=== PATIENT | male | born 1960 | race Caucasian/White ===

== ENCOUNTER 2024-01-02 15:09 | Inpatient (IN) | payer OTHER ==
[~2024-01-02] VITALS: Ht 180.3 cm; Wt 68.0 kg
[2024-01-02 15:59] LABS: BASOPHILS % 0.7 % (0.0-2.0); EOSINOPHILS % 0.2 % (0.0-5.0); HEMATOCRIT. 47.4 % (42.0-52.0); HEMOGLOBIN. 15.2 g/dL (14.0-18.0); LYMPHOCYTES % 22.2 % (20.0-50.0); MEAN CORPUSCULAR HEMOGLOBIN 29.1 pg (28.0-32.0); NEUTROPHILS % 68.9 % (40.0-76.0); PLATELET 244 x1000/uL (130-400); RED BLOOD CELL COUNT 5.21 mill/uL (4.7-6.1); RED CELL DISTRIBUTION WIDTH 15.5 % (11.6-14.6)
[2024-01-02 16:04] LABS: CHLORIDE 104 mEq/L (98-107); POTASSIUM 4.5 mEq/L (3.5-5.1); SODIUM 139 mEq/L (136-145)
[2024-01-02 16:05] LABS: CALCIUM 9.2 mg/dL (8.7-10.4); CARBON DIOXIDE 28 mEq/L (21-32)
[2024-01-02 16:10] LABS: CREATININE 1.3 mg/dL (0.6-1.3); GLUCOSE 100 mg/dL (70-105); UREA NITROGEN BLOOD 31 mg/dL (9-23)
[2024-01-02 16:12] LABS: TROPONIN I HIGH SENSITIVITY 24 ng/L (3.0-53)
[2024-01-02] MEDS: FUROSEMIDE 40MG/4ML VIAL IV ONE (16:13)
[2024-01-02] MEDS: ASPIRIN 81MG TABLET PO ONE (16:13)
[2024-01-02] MEDS: MORPHINE SULFATE 4 MG/ML INJ (FOR IV/IM USE) IV ONE ×2 (16:49→20:23)
[2024-01-02 21:30] VITALS: BP 117/93; PULSE 110; PULSE 111; RESP 14; RESP 25; TEMP 97.9
[2024-01-03] VITALS (51 sets, daily range): BP systolic 96–132; BP diastolic 71–106; PULSE 91–114; RESP 9–28; TEMP 96.8–98.2
[2024-01-03] MEDS ORDERED: ONDANSETRON HCL 4MG/2ML INJ IV PRN (02:00)
[2024-01-03] MEDS ORDERED: NALOXONE HCL 0.4MG/ML VIAL IV PRN (02:00)
[2024-01-03] MEDS ORDERED: CLONIDINE 0.1MG TABLET PO PRN (02:00)
[2024-01-03] MEDS: HYDROCODONE/ACETAMINOPHEN 5/325MG TABLET PO PRN (02:28)
[2024-01-03 04:16] LABS: CLARITY URINE CLEAR (CLEAR); COLOR URINE YELLOW (YELLOW); GLUCOSE URINE NEGATIVE (NEGATIVE); KETONES URINE NEGATIVE (NEGATIVE); LEUKOCYTE ESTERASE URINE NEGATIVE (NEGATIVE); NITRITE URINE NEGATIVE (NEGATIVE); OCCULT BLOOD URINE NEGATIVE (NEGATIVE); PROTEIN URINE 1+ (NEGATIVE); SPECIFIC GRAVITY URINE 1.012 (1.005-1.030)
[2024-01-03 04:21] LABS: *AMPHETAMINES SCREEN URINE PRESUMPTIVE POSITIVE (NEGATIVE); *BARBITURATES SCREEN URINE NEGATIVE (NEGATIVE); *BENZODIAZEPINES SCREEN URINE NEGATIVE (NEGATIVE); CANNABINOID URINE SCREEN PRESUMPTIVE POSITIVE (NEGATIVE); ECSTASY MDMA SCREEN URINE NEGATIVE (NEGATIVE); METHADONE URINE SCREEN NEGATIVE (NEGATIVE); OPIATES URINE SCREEN PRESUMPTIVE POSITIVE (NEGATIVE); PHENCYCLIDINE URINE SCREEN NEGATIVE (NEGATIVE)
[2024-01-03 05:28] LABS: *COCAINE SCREEN URINE NEGATIVE (NEGATIVE)
[2024-01-03 06:14] LABS: BACTERIA URINE NONE SEEN; RBC URINE NONE SEEN /hpf (0-2); SQUAMOUS EPITHELIAL CELL URINE NONE SEEN /lpf (RARE/1+); WBC URINE 0-2 /hpf (0-2)
[2024-01-03 06:36] LABS: CALCIUM 9.4 mg/dL (8.7-10.4); CHLORIDE 103 mEq/L (98-107); POTASSIUM 4.4 mEq/L (3.5-5.1); SODIUM 141 mEq/L (136-145)
[2024-01-03 06:37] LABS: CARBON DIOXIDE 26 mEq/L (21-32)
[2024-01-03 06:41] LABS: TROPONIN I HIGH SENSITIVITY 37 ng/L (3.0-53)
[2024-01-03 06:42] LABS: CREATININE 1.5 mg/dL (0.6-1.3); GLUCOSE 97 mg/dL (70-105); TRIGLYCERIDE 59 mg/dL (0-150); UREA NITROGEN BLOOD 24 mg/dL (9-23)
[2024-01-03 06:43] LABS: LDL CHOLESTEROL 53 mg/dL (5-100)
[2024-01-03 06:44] LABS: CHOLESTEROL 93 mg/dL (<200); HDL CHOLESTEROL 27 mg/dL (>55)
[2024-01-03 06:45] LABS: THYROID STIMULATING HORMONE 5.64 uIU/mL (0.55-4.78)
[2024-01-03 06:53] LABS: BASOPHILS % 0.6 % (0.0-2.0); DIFFERENTIAL COMMENT 0; EOSINOPHILS % 0.3 % (0.0-5.0); HEMOGLOBIN. 16.2 g/dL (14.0-18.0); LYMPHOCYTES % 26.3 % (20.0-50.0); MEAN CORPUSCULAR HGB CONC 31.1 g/dL (31.0-37.0); MEAN CORPUSCULAR VOLUME 93.3 fL (80.0-94.0); MEAN PLATELET VOLUME 9.6 fl (7.4-10.4); MONOCYTES % 9.1 % (2.0-8.0); NEUTROPHILS % 63.7 % (40.0-76.0); PLATELET 251 x1000/uL (130-400); RED BLOOD CELL COUNT 5.57 mill/uL (4.7-6.1); WHITE BLOOD COUNT 7.9 x1000/uL (4.5-11.0)
[2024-01-03 07:08] LABS: HEPATITIS B SURFACE ANTIGEN NEGATIVE (Negative)
[2024-01-03 07:29] LABS: HEPATITIS C AB REACTIVE (Pos) (Negative)
[2024-01-03] MEDS ORDERED: ETOMIDATE 2MG/ML 10ML VIAL IV ONE (09:00)
[2024-01-03] MEDS: FUROSEMIDE 40MG/4ML VIAL IVP SCH (09:31)
[2024-01-03] MEDS: HEPARIN 5000 UNITS/ML VIAL SUBCUT SCH (10:35)
[2024-01-03] MEDS: NICOTINE 14MG PATCH TD SCH (10:35)
[2024-01-03] MEDS: LORAZEPAM 2MG/ML INJ IV PRN (10:35)
[2024-01-03 11:55] LABS: CREATINE KINASE 129 IU/L (46-171)
[2024-01-03] MEDS: IPRATROPIUM/ALBUTEROL 0.5-3(2.5)MG/3ML NEB HHN SCH (12:06)
[2024-01-03] MEDS ORDERED: IOHEXOL-350 100 ML BOTTLE ONE (12:55)
[2024-01-03] MEDS ORDERED: HYDRALAZINE 20MG/ML VIAL IV PRN (13:00)
[2024-01-03] MEDS ORDERED: NOREPINEPHRINE 8MG/250ML PMX 250 ML IV PRN (13:00)
[2024-01-03] MEDS: PROPOFOL 10MG/ML 100ML 100 ML IV PRN (14:17)
[2024-01-03] MEDS: METHYLPREDNISOLONE SOD SUCC 40MG/ML (ACT-O-VIAL) IV SCH (14:18)
[2024-01-03 14:42] LABS: BG BASE EXCESS -2.9 mmol/L (-2.0-2.0); BG CARBOXYHEMOGLOBIN 0.7 % (0.5-1.5); BG DEOXYHEMOGLOBIN 1.9 % (0.0-5.0); BG FRACTION INSPIRED OXYGEN 100; BG OXYGEN SATURATION 98.1 % (92.0-98.5); BG OXYHEMOGLOBIN 97.4 % (94.0-97.0); BG PCO2 54.7 mmHg (35.0-45.0); BG PH 7.277 (7.350-7.450); BG PO2 113.3 mmHg (75.0-100.0); BG SAMPLE SITE RIGHT RADIAL; BG TOTAL HEMOGLOBIN 17.1 g/dL (12.0-18.0); BG VENT MODE VENT - AC
[2024-01-03] MEDS: PIPERACILLIN/TAZO 3.375G/50ML 50 ML IV SCH (14:59)
[2024-01-03] MEDS ORDERED: PNEUMOCOCCAL 23-VAL P-SAC VAC 0.5 ML IM ONE (15:00)
[2024-01-03] MEDS: ACETYLCYSTEINE 200MG/ML 20% VIAL 4ML INH SCH (22:00)
[2024-01-04] VITALS (108 sets, daily range): BP systolic 89–122; BP diastolic 63–105; PULSE 89–140; RESP 18–25; TEMP 96.7–98.1
[2024-01-04 05:29] LABS: HEMATOCRIT. 51.2 % (42.0-52.0); HEMOGLOBIN. 16.1 g/dL (14.0-18.0); MEAN CORPUSCULAR HEMOGLOBIN 29.4 pg (28.0-32.0); MEAN CORPUSCULAR HGB CONC 31.4 g/dL (31.0-37.0); MEAN CORPUSCULAR VOLUME 93.4 fL (80.0-94.0); MEAN PLATELET VOLUME 9.4 fl (7.4-10.4); PLATELET 219 x1000/uL (130-400); RED BLOOD CELL COUNT 5.49 mill/uL (4.7-6.1); RED CELL DISTRIBUTION WIDTH 15.9 % (11.6-14.6); WHITE BLOOD COUNT 14.9 x1000/uL (4.5-11.0)
[2024-01-04 06:17] LABS: DIFFERENTIAL COMMENT 1
[2024-01-04 09:16] LABS: BG BASE EXCESS 3.1 mmol/L (-2.0-2.0); BG CARBOXYHEMOGLOBIN 0.9 % (0.5-1.5); BG DEOXYHEMOGLOBIN 2.8 % (0.0-5.0); BG FRACTION INSPIRED OXYGEN 100; BG HCO3 ACT 27.2 mmol/L (22.0-26.0); BG METHEMOGLOBIN 0.3 % (0.0-1.5); BG OXYGEN SATURATION 97.2 % (92.0-98.5); BG PCO2 39.9 mmHg (35.0-45.0); BG PH 7.452 (7.350-7.450); BG PO2 87.4 mmHg (75.0-100.0); BG SAMPLE SITE RIGHT BRACHIAL; BG TOTAL HEMOGLOBIN 16.8 g/dL (12.0-18.0); BG VENT MODE VENT - AC
[2024-01-04 09:29] LABS: CALCIUM 9.2 mg/dL (8.7-10.4); CARBON DIOXIDE 27 mEq/L (21-32); CHLORIDE 102 mEq/L (98-107); POTASSIUM 4.1 mEq/L (3.5-5.1); SODIUM 141 mEq/L (136-145)
[2024-01-04 09:34] LABS: CREATININE 1.5 mg/dL (0.6-1.3); GLUCOSE 92 mg/dL (70-105)
[2024-01-04 09:35] LABS: TRIGLYCERIDE 87 mg/dL (0-150); UREA NITROGEN BLOOD 21 mg/dL (9-23)
[2024-01-04] MEDS: CHLORHEXIDINE GLUCONATE 4% EXTERNAL USE TOP SCH (13:00)
[2024-01-04 16:10] LABS: PLATELET ESTIMATE NORMAL
[2024-01-04 17:51] LABS: LACTIC ACID 6.9 mmol/L (0.4-2.0)
[2024-01-04] MEDS ORDERED: PROPOFOL 10MG/ML 100ML 100 ML IV PRN (22:00)
[2024-01-04] MEDS: PROPOFOL 10MG/ML 100ML 100 ML IV PRN (22:23)
[2024-01-05] VITALS (67 sets, daily range): BP systolic 101–122; BP diastolic 83–100; PULSE 101–116; RESP 18–27; TEMP 97–98.7
[2024-01-05 06:17] LABS: HEMATOCRIT. 49.9 % (42.0-52.0); HEMOGLOBIN. 15.7 g/dL (14.0-18.0); MEAN CORPUSCULAR HGB CONC 31.4 g/dL (31.0-37.0); MEAN CORPUSCULAR VOLUME 92.3 fL (80.0-94.0); MEAN PLATELET VOLUME 9.9 fl (7.4-10.4); PLATELET 224 x1000/uL (130-400); RED BLOOD CELL COUNT 5.41 mill/uL (4.7-6.1); RED CELL DISTRIBUTION WIDTH 15.3 % (11.6-14.6); WHITE BLOOD COUNT 17.7 x1000/uL (4.5-11.0)
[2024-01-05 06:26] LABS: POTASSIUM 4.2 mEq/L (3.5-5.1)
[2024-01-05 06:27] LABS: CALCIUM 9.3 mg/dL (8.7-10.4)
[2024-01-05 06:31] LABS: CREATININE 1.4 mg/dL (0.6-1.3)
[2024-01-05 08:25] LABS: DIFFERENTIAL COMMENT 1
[2024-01-05 11:18] LABS: PLATELET ESTIMATE NORMAL
[2024-01-05] MEDS: METOLAZONE 2.5MG TABLET PO NR (13:08)
[2024-01-05] MEDS: ACETAMINOPHEN 325MG TABLET PO PRN (13:08)
[2024-01-05] MEDS: BACITRACIN 14GM TUBE TOP SCH (14:00)
[2024-01-06] VITALS (85 sets, daily range): BP systolic 99–125; BP diastolic 75–103; PULSE 98–121; RESP 18–26; TEMP 97.9–98.3
[2024-01-06] MEDS: PROPOFOL 10MG/ML 100ML 100 ML IV PRN (03:15)
[2024-01-06 11:34] LABS: HEMATOCRIT. 46.5 % (42.0-52.0); HEMOGLOBIN. 14.8 g/dL (14.0-18.0); MEAN CORPUSCULAR HGB CONC 31.9 g/dL (31.0-37.0); MEAN CORPUSCULAR VOLUME 90.9 fL (80.0-94.0); MEAN PLATELET VOLUME 8.9 fl (7.4-10.4); PLATELET 197 x1000/uL (130-400); RED BLOOD CELL COUNT 5.11 mill/uL (4.7-6.1); RED CELL DISTRIBUTION WIDTH 15.5 % (11.6-14.6); WHITE BLOOD COUNT 15.5 x1000/uL (4.5-11.0)
[2024-01-06 11:36] LABS: DIFFERENTIAL COMMENT 1
[2024-01-06 11:47] LABS: POTASSIUM 3.4 mEq/L (3.5-5.1)
[2024-01-06 11:48] LABS: CALCIUM 9.2 mg/dL (8.7-10.4)
[2024-01-06 11:53] LABS: CREATININE 1.3 mg/dL (0.6-1.3)
[2024-01-06 11:54] LABS: LACTIC ACID 2.7 mmol/L (0.4-2.0)
[2024-01-06 12:32] LABS: ANISOCYTOSIS 1+; PLATELET ESTIMATE NORMAL
[2024-01-06] MEDS: POTASSIUM CHLORIDE 20MEQ TABLET SR PO NR (14:29)
[2024-01-06] MEDS: SPIRONOLACTONE 25MG TABLET PO SCH (14:30)
[2024-01-06] MEDS ORDERED: METHYLPREDNISOLONE SOD SUCC 40MG/ML (ACT-O-VIAL) IV SCH (18:00)
[2024-01-06] MEDS: METHYLPREDNISOLONE SOD SUCC 40MG/ML (ACT-O-VIAL) IV SCH (21:00)
[2024-01-07] VITALS (63 sets, daily range): BP systolic 99–129; BP diastolic 79–103; PULSE 96–112; RESP 16–24; TEMP 97.7–98.4
[2024-01-07 05:40] LABS: HEMATOCRIT. 43.1 % (42.0-52.0); HEMOGLOBIN. 13.8 g/dL (14.0-18.0); MEAN CORPUSCULAR HEMOGLOBIN 28.9 pg (28.0-32.0); MEAN CORPUSCULAR VOLUME 90.3 fL (80.0-94.0); PLATELET 171 x1000/uL (130-400); RED BLOOD CELL COUNT 4.77 mill/uL (4.7-6.1); RED CELL DISTRIBUTION WIDTH 15.7 % (11.6-14.6); WHITE BLOOD COUNT 12.2 x1000/uL (4.5-11.0)
[2024-01-07 05:41] LABS: DIFFERENTIAL COMMENT 1
[2024-01-07] MEDS: PROPOFOL 10MG/ML 100ML 100 ML IV PRN ×2 (05:42→21:03)
[2024-01-07 05:45] LABS: CHLORIDE 99 mEq/L (98-107); POTASSIUM 3.7 mEq/L (3.5-5.1); SODIUM 141 mEq/L (136-145)
[2024-01-07 05:46] LABS: CARBON DIOXIDE 34 mEq/L (21-32)
[2024-01-07 05:51] LABS: CREATININE 1.2 mg/dL (0.6-1.3); GLUCOSE 135 mg/dL (70-105); TRIGLYCERIDE 78 mg/dL (0-150); UREA NITROGEN BLOOD 34 mg/dL (9-23)
[2024-01-07 10:25] LABS: PLATELET ESTIMATE NORMAL
[2024-01-07] MEDS: POLYETHYLENE GLYCOL 3350 (17GM) 1 DOSE PACK PO PRN (12:54)
[2024-01-07] MEDS: PANTOPRAZOLE SODIUM 40 MG/VIAL IV SCH (12:54)
[2024-01-08] VITALS (47 sets, daily range): BP systolic 92–117; BP diastolic 72–97; PULSE 82–110; RESP 16–24; TEMP 97.4–98.1
[2024-01-08 05:24] LABS: HEMATOCRIT. 45.1 % (42.0-52.0); HEMOGLOBIN. 14.4 g/dL (14.0-18.0); MEAN CORPUSCULAR HEMOGLOBIN 28.8 pg (28.0-32.0); MEAN CORPUSCULAR HGB CONC 31.9 g/dL (31.0-37.0); MEAN CORPUSCULAR VOLUME 90.3 fL (80.0-94.0); MEAN PLATELET VOLUME 9.2 fl (7.4-10.4); PLATELET 162 x1000/uL (130-400); RED CELL DISTRIBUTION WIDTH 15.3 % (11.6-14.6); WHITE BLOOD COUNT 9.6 x1000/uL (4.5-11.0)
[2024-01-08 05:25] LABS: DIFFERENTIAL COMMENT 1
[2024-01-08 05:27] LABS: CARBON DIOXIDE 32 mEq/L (21-32); CHLORIDE 99 mEq/L (98-107); POTASSIUM 3.9 mEq/L (3.5-5.1); SODIUM 140 mEq/L (136-145)
[2024-01-08 05:28] LABS: CALCIUM 8.8 mg/dL (8.7-10.4)
[2024-01-08 05:33] LABS: CREATININE 1.2 mg/dL (0.6-1.3); GLUCOSE 162 mg/dL (70-105); TRIGLYCERIDE 107 mg/dL (0-150); UREA NITROGEN BLOOD 34 mg/dL (9-23)
[2024-01-08 06:13] LABS: ATYPICAL LYMPHOCYTES 2; PLATELET ESTIMATE NORMAL
[2024-01-08 06:14] LABS: OVALOCYTES 2+; TARGET CELLS 1+; TEAR DROP CELLS 1+
[2024-01-08] MEDS: METHYLPREDNISOLONE SOD SUCC 40MG/ML (ACT-O-VIAL) IV SCH (08:41)
[2024-01-08 11:19] LABS: PARTIAL THROMBOPLASTIN TIME 27.1 sec (23.4-31.0); PROTHROMBIN TIME 11.5 sec (9.6-11.0)
[2024-01-08] MEDS: PROPOFOL 10MG/ML 100ML 100 ML IV PRN (23:08)
[2024-01-09] VITALS (65 sets, daily range): BP systolic 87–113; BP diastolic 66–101; PULSE 78–133; RESP 14–50; TEMP 98.1–98.6; O2SAT 95
[2024-01-09 05:21] LABS: BASOPHILS % 0.2 % (0.0-2.0); EOSINOPHILS % 0.1 % (0.0-5.0); HEMOGLOBIN. 14.4 g/dL (14.0-18.0); MEAN CORPUSCULAR HEMOGLOBIN 28.7 pg (28.0-32.0); MEAN CORPUSCULAR VOLUME 89.4 fL (80.0-94.0); MEAN PLATELET VOLUME 9.4 fl (7.4-10.4); MONOCYTES % 8.1 % (2.0-8.0); NEUTROPHILS % 76.6 % (40.0-76.0); PLATELET 153 x1000/uL (130-400); RED BLOOD CELL COUNT 5.03 mill/uL (4.7-6.1); RED CELL DISTRIBUTION WIDTH 15.3 % (11.6-14.6)
[2024-01-09 05:29] LABS: CHLORIDE 99 mEq/L (98-107); POTASSIUM 3.9 mEq/L (3.5-5.1); SODIUM 139 mEq/L (136-145)
[2024-01-09 05:30] LABS: CALCIUM 8.7 mg/dL (8.7-10.4); CARBON DIOXIDE 34 mEq/L (21-32)
[2024-01-09 05:35] LABS: CREATININE 1.1 mg/dL (0.6-1.3); GLUCOSE 92 mg/dL (70-105); TRIGLYCERIDE 102 mg/dL (0-150)
[2024-01-09 05:36] LABS: UREA NITROGEN BLOOD 33 mg/dL (9-23)
[2024-01-09 08:30] LABS: BG BASE EXCESS 11.1 mmol/L (-2.0-2.0); BG CARBOXYHEMOGLOBIN 0.9 % (0.5-1.5); BG DEOXYHEMOGLOBIN 1.3 % (0.0-5.0); BG FRACTION INSPIRED OXYGEN 60; BG HCO3 ACT 35.4 mmol/L (22.0-26.0); BG METHEMOGLOBIN 0.1 % (0.0-1.5); BG OXYGEN SATURATION 98.7 % (92.0-98.5); BG OXYHEMOGLOBIN 97.7 % (94.0-97.0); BG PH 7.523 (7.350-7.450); BG PO2 109.3 mmHg (75.0-100.0); BG SAMPLE SITE LEFT RADIAL; BG TOTAL HEMOGLOBIN 15.9 g/dL (12.0-18.0); BG TOTAL RESPIRATORY RATE 20 b/min; BG VENT MODE VENT - AC
[2024-01-09] MEDS ORDERED: LIDOCAINE HCL 1% 10 MG/ML 10ML VIAL ONE (08:31)
[2024-01-09] MEDS ORDERED: SODIUM BICARBONATE 4% (2.4MEQ) 5ML VIAL IV ONE (08:31)
[2024-01-09] MEDS: ALBUMIN HUMAN 12.5G/250ML (5%) IV NR (10:51)
[2024-01-09 11:36] LABS: PROTEIN BODY FLUID 2.4 gm/dL
[2024-01-09 11:36] LABS: PROTEIN BODY FLUID 3.2 gm/dL
[2024-01-09 11:43] LABS: BODY FLUID MONOCYTES 2 %; BODY FLUID RBC 7 /cu mm (0-2000); BODY FLUID WBC 25 /cu mm (0-200)
[2024-01-09 11:44] LABS: BODY FLUID MONOCYTES 2 %; BODY FLUID RBC 1380 /cu mm (0-2000); BODY FLUID WBC 135 /cu mm (0-200)
[2024-01-09] MEDS: SPIRONOLACTONE 25 MG/5 ML ORAL.SUSP NG SCH (12:30)
[2024-01-09 13:08] LABS: BG BASE EXCESS 8.6 mmol/L (-2.0-2.0); BG CARBOXYHEMOGLOBIN 0.7 % (0.5-1.5); BG DEOXYHEMOGLOBIN 1.7 % (0.0-5.0); BG HCO3 ACT 33.7 mmol/L (22.0-26.0); BG METHEMOGLOBIN 0.1 % (0.0-1.5); BG OXYGEN SATURATION 98.3 % (92.0-98.5); BG OXYHEMOGLOBIN 97.5 % (94.0-97.0); BG PCO2 47.3 mmHg (35.0-45.0); BG PO2 100.8 mmHg (75.0-100.0); BG SAMPLE SITE RIGHT BRACHIAL; BG TOTAL HEMOGLOBIN 15.4 g/dL (12.0-18.0); BG VENT MODE VENT - AC
[2024-01-09] MEDS: MORPHINE SULFATE 2 MG/ML INJ (NOT FOR IM USE) IV PRN (16:24)
[2024-01-09] MEDS ORDERED: NALOXONE HCL 0.4MG/ML VIAL IV PRN (16:30)
[2024-01-09] MEDS: MIDAZOLAM 100MG/100ML PMX 100 ML IV PRN (18:14)
[2024-01-10] VITALS (65 sets, daily range): BP systolic 85–120; BP diastolic 62–94; PULSE 82–124; RESP 14–29; TEMP 97.6–98.4
[2024-01-10 06:37] LABS: BASOPHILS % 0.2 % (0.0-2.0); EOSINOPHILS % 0.3 % (0.0-5.0); HEMATOCRIT. 47.3 % (42.0-52.0); HEMOGLOBIN. 14.9 g/dL (14.0-18.0); LYMPHOCYTES % 16.1 % (20.0-50.0); MEAN CORPUSCULAR HEMOGLOBIN 28.4 pg (28.0-32.0); MEAN CORPUSCULAR HGB CONC 31.4 g/dL (31.0-37.0); MEAN CORPUSCULAR VOLUME 90.2 fL (80.0-94.0); MEAN PLATELET VOLUME 9.3 fl (7.4-10.4); MONOCYTES % 7.5 % (2.0-8.0); NEUTROPHILS % 75.9 % (40.0-76.0); PLATELET 149 x1000/uL (130-400); RED BLOOD CELL COUNT 5.24 mill/uL (4.7-6.1); RED CELL DISTRIBUTION WIDTH 15.5 % (11.6-14.6); WHITE BLOOD COUNT 7.3 x1000/uL (4.5-11.0)
[2024-01-10 07:01] LABS: CHLORIDE 101 mEq/L (98-107); POTASSIUM 3.8 mEq/L (3.5-5.1); SODIUM 142 mEq/L (136-145)
[2024-01-10 07:02] LABS: CALCIUM 8.5 mg/dL (8.7-10.4); CARBON DIOXIDE 37 mEq/L (21-32)
[2024-01-10 07:07] LABS: CREATININE 1.1 mg/dL (0.6-1.3); GLUCOSE 117 mg/dL (70-105); UREA NITROGEN BLOOD 36 mg/dL (9-23)
[2024-01-10 08:36] LABS: BG BASE EXCESS 11.7 mmol/L (-2.0-2.0); BG CARBOXYHEMOGLOBIN 0.7 % (0.5-1.5); BG DEOXYHEMOGLOBIN 1.2 % (0.0-5.0); BG FRACTION INSPIRED OXYGEN 40; BG HCO3 ACT 38.2 mmol/L (22.0-26.0); BG METHEMOGLOBIN 0.1 % (0.0-1.5); BG OXYGEN SATURATION 98.8 % (92.0-98.5); BG PCO2 54.5 mmHg (35.0-45.0); BG PH 7.463 (7.350-7.450); BG PO2 112.3 mmHg (75.0-100.0); BG SAMPLE SITE LEFT BRACHIAL; BG TOTAL HEMOGLOBIN 16.9 g/dL (12.0-18.0); BG TOTAL RESPIRATORY RATE 18 b/min; BG VENT MODE VENT - SIMV
[2024-01-10 11:30] LABS: BG BASE EXCESS 12.2 mmol/L (-2.0-2.0); BG DEOXYHEMOGLOBIN 1.6 % (0.0-5.0); BG FRACTION INSPIRED OXYGEN 40; BG HCO3 ACT 38.2 mmol/L (22.0-26.0); BG METHEMOGLOBIN 0.2 % (0.0-1.5); BG OXYGEN SATURATION 98.4 % (92.0-98.5); BG OXYHEMOGLOBIN 97.2 % (94.0-97.0); BG PCO2 52.3 mmHg (35.0-45.0); BG PH 7.481 (7.350-7.450); BG PO2 103.4 mmHg (75.0-100.0); BG SAMPLE SITE RIGHT RADIAL; BG TOTAL HEMOGLOBIN 16.9 g/dL (12.0-18.0); BG VENT MODE VENT - CPAP
[2024-01-10] MEDS: LORAZEPAM 2MG/ML INJ IV PRN (17:28)
[2024-01-11] VITALS (32 sets, daily range): BP systolic 93–117; BP diastolic 60–89; PULSE 64–121; RESP 0–26; TEMP 97–98
[2024-01-11 05:39] LABS: CARBON DIOXIDE 36 mEq/L (21-32); CHLORIDE 99 mEq/L (98-107); SODIUM 137 mEq/L (136-145)
[2024-01-11 05:40] LABS: CALCIUM 8.3 mg/dL (8.7-10.4)
[2024-01-11 05:42] LABS: BASOPHILS % 0.2 % (0.0-2.0); EOSINOPHILS % 0.5 % (0.0-5.0); HEMATOCRIT. 48.4 % (42.0-52.0); HEMOGLOBIN. 15.4 g/dL (14.0-18.0); LYMPHOCYTES % 14.5 % (20.0-50.0); MEAN CORPUSCULAR HEMOGLOBIN 28.5 pg (28.0-32.0); MEAN CORPUSCULAR HGB CONC 31.9 g/dL (31.0-37.0); MEAN CORPUSCULAR VOLUME 89.3 fL (80.0-94.0); MEAN PLATELET VOLUME 8.7 fl (7.4-10.4); MONOCYTES % 7.4 % (2.0-8.0); NEUTROPHILS % 77.4 % (40.0-76.0); PLATELET 145 x1000/uL (130-400); RED BLOOD CELL COUNT 5.42 mill/uL (4.7-6.1); RED CELL DISTRIBUTION WIDTH 15.2 % (11.6-14.6); WHITE BLOOD COUNT 9.3 x1000/uL (4.5-11.0)
[2024-01-11 05:45] LABS: CREATININE 0.9 mg/dL (0.6-1.3); GLUCOSE 99 mg/dL (70-105); UREA NITROGEN BLOOD 35 mg/dL (9-23)
[2024-01-11 08:46] LABS: BG BASE EXCESS 11.1 mmol/L (-2.0-2.0); BG CARBOXYHEMOGLOBIN 1.2 % (0.5-1.5); BG DEOXYHEMOGLOBIN 1.4 % (0.0-5.0); BG FRACTION INSPIRED OXYGEN 28; BG HCO3 ACT 36.5 mmol/L (22.0-26.0); BG METHEMOGLOBIN 0.3 % (0.0-1.5); BG OXYGEN SATURATION 98.6 % (92.0-98.5); BG OXYHEMOGLOBIN 97.1 % (94.0-97.0); BG PCO2 49.5 mmHg (35.0-45.0); BG PH 7.486 (7.350-7.450); BG PO2 108.1 mmHg (75.0-100.0); BG SAMPLE SITE RIGHT RADIAL; BG TOTAL HEMOGLOBIN 16.5 g/dL (12.0-18.0); BG VENT MODE NASAL CANNULA
[2024-01-11] MEDS ORDERED: FURO40TA5 PO (19:20)
[2024-01-12] VITALS: BP 101/71; PULSE 101; RESP 18; TEMP 98
[2024-01-12 04:00] VITALS: BP 108/66; PULSE 109; RESP 20; TEMP 97
[2024-01-12 08:00] VITALS: BP 109/64; PULSE 97; RESP 18; TEMP 97.6
[2024-01-12] MEDS: FAMOTIDINE 20MG/2ML VIAL IV SCH (08:15)
[2024-01-12 08:18] VITALS: BP 118/67; PULSE 92; RESP 17
[2024-01-12] MEDS ORDERED: FURO40TA5 PO (10:35)
[2024-01-12] MEDS ORDERED: SPIR25OR NG (10:35)
[2024-01-12] MEDS ORDERED: NICO-681 TD (10:35)
== END 2024-01-12 09:25 | disposition home or self-care (01) | DRG 720 ==
LOC: ER 15:09 → EDBEDREQSVC 15:56 → 3WST 16:50 → EDBEDREQ 16:52 → EDBEDREQTM 16:52 → CVICU 01-03 13:37 → 7EST 01-11 11:09
PROVIDERS: ADMIT Internal Medicine; ATTEND Internal Medicine
PROC: 5A1955Z Respiratory Ventilation, Greater than 96 Consecutive Hours (ICD-10-PCS; principal; 2024-01-03)
PROC: 0BH17EZ Insertion of Endotracheal Airway into Trachea, Via Natural or Artificial Opening (ICD-10-PCS; 2024-01-03)
PROC: 02HV33Z Insertion of Infusion Device into Superior Vena Cava, Percutaneous Approach (ICD-10-PCS; 2024-01-03)
PROC: B548ZZA Ultrasonography of Superior Vena Cava, Guidance (ICD-10-PCS; 2024-01-03)
PROC: 0W9G3ZZ Drainage of Peritoneal Cavity, Percutaneous Approach (ICD-10-PCS; 2024-01-09)
PROC: 0W993ZZ Drainage of Right Pleural Cavity, Percutaneous Approach (ICD-10-PCS; 2024-01-09)
DX: A41.9 Sepsis, unspecified organism (principal); J96.01 Acute respiratory failure with hypoxia; G93.41 Metabolic encephalopathy; J44.1 Chronic obstructive pulmonary disease with (acute) exacerbation; I31.39 Other pericardial effusion (noninflammatory); N17.9 Acute kidney failure, unspecified; R18.8 Other ascites; I42.9 Cardiomyopathy, unspecified; I50.9 Heart failure, unspecified; F15.10 Other stimulant abuse, uncomplicated; F19.10 Other psychoactive substance abuse, uncomplicated; S61.411A Laceration without foreign body of right hand, initial encounter; S61.412A Laceration without foreign body of left hand, initial encounter; I34.0 Nonrheumatic mitral (valve) insufficiency; B19.20 Unspecified viral hepatitis C without hepatic coma; L98.492 Non-pressure chronic ulcer of skin of other sites with fat layer exposed; Z20.822 Contact with and (suspected) exposure to COVID-19; I73.9 Peripheral vascular disease, unspecified; R31.9 Hematuria, unspecified; Z91.148 Patient's other noncompliance with medication regimen for other reason; Z78.1 Physical restraint status; Z74.01 Bed confinement status; X58.XXXA Exposure to other specified factors, initial encounter; Y93.89 Activity, other specified; Y92.89 Other specified places as the place of occurrence of the external cause; Y99.8 Other external cause status
CPT/HCPCS: 31500; 32555; 36415; 36600; 49083; 71045; 71275; 73630; 74018; 76700; 76705; 80048; 80061; 80305; 81003; 82375; 82550; 82805; 83605; 83615; 83735; 83880; 83986; 84145; 84443; 84478; 84484; 85025; 85379; 86705; 87070; 87340; 87426; 93005; 93306; 93923; 93970; 94002; 94003; 94640; 97166; 99285; J0330; J1644; J1940; J2060; J2250; J2270; J2470; J2543; J2704; J2920; J3490; J7608; P9041; Q9967

== ENCOUNTER 2024-07-21 15:48 | Inpatient (IN) | payer MEDICAID ==
[~2024-07-21] VITALS: Ht 165.1 cm; Wt 63.4 kg
[~2024-07-21 15:48] MED LIST: ALD50 PO; BUPR1FIL5 SL; EMPA25TA MT; FURO20TA4 PO; FURO40TA5 PO; METO-396 PO; MIDO5TAB4 PO; MIRT-89 PO; NICO-681 TD; THIA100T72 PO
[2024-07-21 15:50] VITALS: O2SAT 95
[2024-07-21 16:38] LABS: ADD RBC MORPHOLOGY YES; BASOPHILS % 1.3 % (0.0-2.0); DIFFERENTIAL COMMENT 1; HEMATOCRIT. 38.8 % (42.0-52.0); HEMOGLOBIN. 11.7 g/dL (14.0-18.0); LYMPHOCYTES % 25.3 % (20.0-50.0); MEAN CORPUSCULAR HEMOGLOBIN 25.3 pg (28.0-32.0); MEAN CORPUSCULAR HGB CONC 30.2 g/dL (31.0-37.0); MEAN PLATELET VOLUME 7.6 fl (7.4-10.4); MONOCYTES % 7.6 % (2.0-8.0); NEUTROPHILS % 64.8 % (40.0-76.0); PLATELET 282 x1000/uL (130-400); RED BLOOD CELL COUNT 4.62 mill/uL (4.7-6.1); RED CELL DISTRIBUTION WIDTH 23.8 % (11.6-14.6); WHITE BLOOD COUNT 8.7 x1000/uL (4.5-11.0)
[2024-07-21] MEDS: MORPHINE SULFATE 4 MG/ML INJ (FOR IV/IM USE) IV ONE ×2 (16:41→17:30)
[2024-07-21] MEDS: ONDANSETRON HCL 4MG/2ML INJ IV ONE (16:41)
[2024-07-21] MEDS: ASPIRIN 81MG TABLET PO ONE (16:41)
[2024-07-21 16:53] LABS: CALCIUM 8.3 mg/dL (8.7-10.4); CARBON DIOXIDE 27 mEq/L (21-32); CHLORIDE 101 mEq/L (98-107); POTASSIUM 3.6 mEq/L (3.5-5.1); SODIUM 138 mEq/L (136-145)
[2024-07-21 16:55] LABS: INR 1.2; PARTIAL THROMBOPLASTIN TIME 27.6 sec (23.4-31.0); PROTHROMBIN TIME 12.8 sec (9.6-11.0)
[2024-07-21 16:58] LABS: CREATININE 0.8 mg/dL (0.6-1.3); GLUCOSE 77 mg/dL (70-105); UREA NITROGEN BLOOD 11 mg/dL (9-23)
[2024-07-21 16:59] LABS: TROPONIN I HIGH SENSITIVITY 10 ng/L (3.0-53)
[2024-07-21 17:00] LABS: ALANINE AMINOTRANSFERASE 13 IU/L (10-49); ALBUMIN 3.3 g/dL (3.2-4.8); ASPARTATE AMINOTRANSFERASE 30 IU/L (<34); BILIRUBIN DIRECT 1.5 mg/dL (<=3.0); BILIRUBIN TOTAL 2.4 mg/dL (0.1-1.0); PROTEIN TOTAL 6.9 g/dL (6.0-8.3)
[2024-07-21 17:11] LABS: ANISOCYTOSIS 2+; PLATELET ESTIMATE NORMAL
[2024-07-21] MEDS ORDERED: MORPHINE SULFATE 4 MG/ML INJ (FOR IV/IM USE) IM ONE (17:30)
[2024-07-21 21:08] LABS: TROPONIN I HIGH SENSITIVITY 13 ng/L (3.0-53)
[2024-07-21] MEDS ORDERED: MAGNESIUM/ALUMINUM HYDROXIDE/SIMETHICONE 30ML UDC PO PRN (21:45)
[2024-07-21] MEDS ORDERED: CLONIDINE 0.1MG TABLET PO PRN (21:45)
[2024-07-21] MEDS ORDERED: ACETAMINOPHEN 325MG TABLET PO PRN ×2 (21:45)
[2024-07-21] MEDS ORDERED: IPRATROPIUM/ALBUTEROL 0.5-3(2.5)MG/3ML NEB HHN PRN (21:45)
[2024-07-21] MEDS ORDERED: IOHEXOL-350 100 ML BOTTLE ONE (23:26)
[2024-07-22] MEDS: IBUPROFEN 600MG TABLET PO PRN (00:56)
[2024-07-22] MEDS: LORAZEPAM 0.5MG TABLET PO PRN (01:54)
[2024-07-22] MEDS: FUROSEMIDE 40MG/4ML VIAL IVP NR (04:31)
[2024-07-22] MEDS: ENOXAPARIN 80MG/0.8ML SYR SUBCUT SCH (05:10)
[2024-07-22] MEDS: PANTOPRAZOLE 40MG DR TABLET PO SCH (06:37)
[2024-07-22] MEDS: MORPHINE SULFATE 2 MG/ML INJ (NOT FOR IM USE) IV PRN ×2 (06:37→10:24)
[2024-07-22 06:47] LABS: CARBON DIOXIDE 25 mEq/L (21-32); CHLORIDE 101 mEq/L (98-107); POTASSIUM 4.2 mEq/L (3.5-5.1); SODIUM 139 mEq/L (136-145)
[2024-07-22 06:48] LABS: CALCIUM 8.8 mg/dL (8.7-10.4)
[2024-07-22 06:49] LABS: BASOPHILS % 1.2 % (0.0-2.0); EOSINOPHILS % 0.5 % (0.0-5.0); HEMATOCRIT. 40.8 % (42.0-52.0); HEMOGLOBIN. 12.2 g/dL (14.0-18.0); LYMPHOCYTES % 22.5 % (20.0-50.0); MEAN CORPUSCULAR HEMOGLOBIN 25.9 pg (28.0-32.0); MEAN CORPUSCULAR HGB CONC 29.8 g/dL (31.0-37.0); MEAN CORPUSCULAR VOLUME 86.8 fL (80.0-94.0); MEAN PLATELET VOLUME 7.9 fl (7.4-10.4); MONOCYTES % 10.5 % (2.0-8.0); NEUTROPHILS % 65.3 % (40.0-76.0); PLATELET 295 x1000/uL (130-400); RED CELL DISTRIBUTION WIDTH 23.8 % (11.6-14.6); WHITE BLOOD COUNT 11.2 x1000/uL (4.5-11.0)
[2024-07-22 06:53] LABS: CREATININE 1.1 mg/dL (0.6-1.3); GLUCOSE 87 mg/dL (70-105)
[2024-07-22 06:54] LABS: UREA NITROGEN BLOOD 15 mg/dL (9-23)
[2024-07-22 07:30] VITALS: BP 116/91; PULSE 89; RESP 18; TEMP 35.7508
[2024-07-22 08:00] VITALS: BP 116/89; PULSE 89; RESP 18; TEMP 35.72508; O2SAT 91
[2024-07-22] MEDS ORDERED: MORPHINE SULFATE 2 MG/ML INJ (NOT FOR IM USE) IV PRN (08:00)
[2024-07-22 08:11] LABS: DIFFERENTIAL COMMENT 1
[2024-07-22] MEDS ORDERED: ENOXAPARIN 40MG/0.4ML SYR SUBCUT SCH (09:00)
[2024-07-22] MEDS ORDERED: FUROSEMIDE 40MG/4ML VIAL IVP SCH (09:00)
[2024-07-22] MEDS: THIAMINE HCL 100MG TABLET PO SCH (09:50)
[2024-07-22] MEDS: FOLIC ACID 1MG TABLET PO SCH (09:50)
[2024-07-22] MEDS: CEFTRIAXONE 2GM/50ML 50 ML IV SCH (09:52)
[2024-07-22] MEDS: FUROSEMIDE 40MG/4ML VIAL IVP SCH (09:58)
[2024-07-22] MEDS: METHYLPREDNISOLONE SOD SUCC 125MG/2ML (ACT-O-VIAL) IV NR (10:23)
[2024-07-22] MEDS: LIDOCAINE HCL 1% 10 MG/ML 10ML VIAL ONE (11:17)
[2024-07-22 12:00] VITALS: BP 121/91; PULSE 91; RESP 18; TEMP 36.16956; O2SAT 95
[2024-07-22] MEDS ORDERED: NALOXONE HCL 0.4MG/ML VIAL IV PRN (15:45)
[2024-07-22 16:00] VITALS: BP 102/72; PULSE 104; RESP 18; TEMP 36.55848; O2SAT 99
[2024-07-22] MEDS: ALBUMIN HUMAN 25GM/100ML (25%) IV NR (17:49)
[2024-07-22 20:00] VITALS: BP 100/72; PULSE 67; RESP 18; TEMP 37.00296; O2SAT 94
[2024-07-22] MEDS: METHYLPREDNISOLONE SOD SUCC 40MG/ML (ACT-O-VIAL) IV SCH (21:34)
[2024-07-22 22:35] LABS: BODY FLUID MONOCYTES 50 %; BODY FLUID RBC 1555 /cu mm (0-2000); BODY FLUID WBC 127 /cu mm (0-200)
[2024-07-22 23:55] LABS: HEMATOCRIT 35.3 % (42.0-52.0); HEMOGLOBIN 10.7 g/dL (14.0-18.0)
[2024-07-23] VITALS: BP 111/87; PULSE 114; RESP 16; TEMP 36.00288; O2SAT 98
[2024-07-23] MEDS: MORPHINE SULFATE 2 MG/ML INJ (NOT FOR IM USE) IV NR (02:52)
[2024-07-23] MEDS: GUAIFENESIN 200MG/10ML SUGAR FREE UDC PO PRN (03:05)
[2024-07-23] MEDS: HYDROXYZINE 25MG TABLET PO PRN (03:05)
[2024-07-23 04:00] VITALS: BP 122/85; PULSE 65; RESP 16; TEMP 35.78064; O2SAT 90
[2024-07-23 08:00] VITALS: BP 118/93; PULSE 93; RESP 18; TEMP 36.22512; O2SAT 98
[2024-07-23 09:49] LABS: POTASSIUM 4.5 mEq/L (3.5-5.1)
[2024-07-23] MEDS: DOCUSATE SODIUM 100MG CAPSULE PO PRN (09:51)
[2024-07-23 09:53] LABS: HEMATOCRIT. 37.8 % (42.0-52.0); HEMOGLOBIN. 11.5 g/dL (14.0-18.0); MEAN CORPUSCULAR HEMOGLOBIN 25.7 pg (28.0-32.0); MEAN CORPUSCULAR HGB CONC 30.4 g/dL (31.0-37.0); MEAN CORPUSCULAR VOLUME 84.5 fL (80.0-94.0); MEAN PLATELET VOLUME 8.2 fl (7.4-10.4); PLATELET 271 x1000/uL (130-400); RED BLOOD CELL COUNT 4.48 mill/uL (4.7-6.1); RED CELL DISTRIBUTION WIDTH 23.3 % (11.6-14.6); WHITE BLOOD COUNT 12.9 x1000/uL (4.5-11.0)
[2024-07-23 09:54] LABS: CREATININE 1.4 mg/dL (0.6-1.3)
[2024-07-23 10:06] LABS: DIFFERENTIAL COMMENT 1
[2024-07-23 17:48] LABS: ANISOCYTOSIS 2+; GIANT PLATELETS FEW; PLATELET ESTIMATE NORMAL
[2024-07-23 20:00] VITALS: BP 109/66; PULSE 117; RESP 16; TEMP 36.83628; O2SAT 98
[2024-07-24] VITALS: BP 102/74; PULSE 120; RESP 18; TEMP 36.72516; O2SAT 96
[2024-07-24 04:00] VITALS: BP 114/88; PULSE 66; RESP 20; TEMP 36.55848; O2SAT 96
[2024-07-24 08:00] VITALS: BP 121/88; PULSE 127; RESP 20; TEMP 35.11392; O2SAT 99
[2024-07-24] MEDS: FAMOTIDINE 20MG TABLET PO SCH (09:00)
[2024-07-24] MEDS: ONDANSETRON HCL 4MG/2ML INJ IV PRN (11:06)
[2024-07-24 12:00] VITALS: BP 117/90; PULSE 129; RESP 20; TEMP 36.3918; O2SAT 99
[2024-07-24 16:00] VITALS: BP 105/80; PULSE 133; RESP 20; TEMP 36.28068; O2SAT 95
[2024-07-24] MEDS: ENOXAPARIN 60MG/0.6ML SYR SUBCUT SCH (18:34)
[2024-07-25] MEDS ORDERED: PREDNISONE 20MG TABLET PO SCH (09:00)
== END 2024-07-24 18:55 | disposition left against medical advice (07) | DRG 280 ==
LOC: ER 15:48 → 5WST 19:15 → EDBEDREQ 19:25 → EDBEDREQTM 19:25
PROVIDERS: ADMIT Internal Medicine; ATTEND Internal Medicine
PROC: 0W9G3ZZ Drainage of Peritoneal Cavity, Percutaneous Approach (ICD-10-PCS; principal; 2024-07-22)
DX: K70.31 Alcoholic cirrhosis of liver with ascites (principal); I50.23 Acute on chronic systolic (congestive) heart failure; K65.2 Spontaneous bacterial peritonitis; I11.0 Hypertensive heart disease with heart failure; F33.1 Major depressive disorder, recurrent, moderate; R62.7 Adult failure to thrive; D64.9 Anemia, unspecified; E11.9 Type 2 diabetes mellitus without complications; E78.5 Hyperlipidemia, unspecified; Z53.29 Procedure and treatment not carried out because of patient's decision for other reasons; F41.9 Anxiety disorder, unspecified; F14.10 Cocaine abuse, uncomplicated; I25.10 Atherosclerotic heart disease of native coronary artery without angina pectoris; Z66 Do not resuscitate; Z51.5 Encounter for palliative care; Z86.711 Personal history of pulmonary embolism; Z79.899 Other long term (current) drug therapy; Z91.199 Patient's noncompliance with other medical treatment and regimen due to unspecified reason; Z68.23 Body mass index [BMI] 23.0-23.9, adult; Z86.718 Personal history of other venous thrombosis and embolism; Z87.891 Personal history of nicotine dependence
CPT/HCPCS: 36415; 49083; 71045; 71275; 76604; 80048; 80076; 82040; 83615; 83880; 84145; 84484; 85014; 85018; 85025; 93005; 97161; 97166; 99285; A4606; A4663; J0696; J1650; J1940; J2003; J2270; J2405; J2919; J2920; P9047; Q9967